=== PATIENT | female | born 1955 | race Caucasian/White ===

== ENCOUNTER 2025-08-16 14:03 | Outpatient (REF) | payer MEDICARE, SELFPAY ==
[2025-08-16 13:47] LABS: ALT 28 U/L (10-49); AST 22 U/L (<34); Albumin 4.0 g/dL (3.2-5.0); Alkaline Phosphatase 72 U/L (46-116); Anion Gap 11.8 mmol/L (3-11); BUN 51 mg/dL (9-23); Bilirubin, Total 0.4 mg/dL (0.2-1.2); CO2 25.0 mmol/L (20.0-31.0); Calcium 7.2 mg/dL (8.3-10.6); Chloride 98 mmol/L (98-107); Glucose 145 mg/dL (74-106); Potassium 2.8 mmol/L (3.5-5.1); Sodium 135 mmol/L (136-145); Total Protein 7.0 g/dL (5.7-8.2)
[2025-08-16 15:24] LABS: Magnesium 1.0 mg/dL (1.6-2.6)
== END 2025-08-16 14:04 | disposition home or self-care (01) ==
LOC: LBN 14:03
PROVIDERS: Visit Provider Nurse Practitioner Gerontology
DX: C41.3 Malignant neoplasm of ribs, sternum and clavicle (principal)
CPT/HCPCS: 80053; 83735

== ENCOUNTER 2025-08-19 00:31 | Outpatient (RCR) | payer MEDICARE, SELFPAY ==
[2025-08-02 10:32] LABS: ALT 32 U/L (10-49); AST 27 U/L (<34); Albumin 4.2 g/dL (3.2-5.0); Alkaline Phosphatase 69 U/L (46-116); Anion Gap 8.4 mmol/L (3-11); BUN 18 mg/dL (9-23); Bilirubin, Total 0.3 mg/dL (0.2-1.2); CO2 26.6 mmol/L (20.0-31.0); Calcium 8.9 mg/dL (8.3-10.6); Chloride 105 mmol/L (98-107); Glucose 106 mg/dL (74-106); Potassium 4.0 mmol/L (3.5-5.1); Sodium 140 mmol/L (136-145); Total Protein 7.4 g/dL (5.7-8.2)
[2025-08-02] MEDS: Normal Saline Flush 10 ML SYR IVP (10:42)
[2025-08-19] MEDS: Normal Saline Flush 10 ML SYR IVP (11:57)
[2025-08-19 12:25] LABS: ALT 28 U/L (10-49); AST 26 U/L (<34); Albumin 3.9 g/dL (3.2-5.0); Alkaline Phosphatase 61 U/L (46-116); Anion Gap 9.2 mmol/L (3-11); BUN 26 mg/dL (9-23); Bilirubin, Total 0.2 mg/dL (0.2-1.2); CO2 23.8 mmol/L (20.0-31.0); Calcium 7.4 mg/dL (8.3-10.6); Chloride 105 mmol/L (98-107); Glucose 121 mg/dL (74-106); Magnesium 1.0 mg/dL (1.6-2.6); Potassium 3.9 mmol/L (3.5-5.1); Sodium 138 mmol/L (136-145); Total Protein 6.8 g/dL (5.7-8.2)
== END 2025-08-21 23:59 | disposition home or self-care (01) ==
LOC: INF 00:31
PROVIDERS: Visit Provider Nurse Practitioner Gerontology
DX: C41.3 Malignant neoplasm of ribs, sternum and clavicle (principal); Z45.2 Encounter for adjustment and management of vascular access device
CPT/HCPCS: 36591; 80053; 83735